=== PATIENT | female | born 2000 | race American Indian/Alaskan Native ===

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

== ENCOUNTER 2018-06-14 14:15 | Emergency (ER) | payer MEDICAID ==
[2018-06-14 14:21] VITALS: BP 110/63
--- NOTE | 2018-06-14 14:22 | Emergency Department Report ---
Chief Complaint: Back Pain/Injury Stated Complaint: 17 WEEKS PREGNANCT/BACK PAIN Time Seen by Provider: 06/14/18 14:19 - HPI History of Present Illness: This is a 18 y.o. female that presents with low back pain, dysuria, and urinary frequency for a few weeks. Patient is 17 weeks . LMP 02/16/19, A0. Followed by [facility] at [facility] in [place]. Denies vaginal bleeding, vaginal discharge, or abdominal pain. - Exam Vital Signs: Vital Signs 06/14/18 14:20 Temperature 97.6 F Pulse Rate 105 H Respiratory 16 Rate Blood Pressure 110/63 O2 Sat by Pulse 100 Oximetry MSE screening note: Focused history and physical exam performed. Due to findings the following was ordered: labs acc for further evaluation ED Disposition for MSE Condition: Stable
[2018-06-14 14:44] LABS: Bacteria,Urine 1+ /HPF (Negative); Bilirubin,Urine NEG (Negative); Blood,Urine NEG (Negative); Color,Urine Yellow (Yellow); Mucus,Urine 1+ /HPF; Protein,Urine <15 mg/dL mg/dL (Negative)
[2018-06-14 14:45] LABS: HCG Qualitative,Urine Positive (Negative); WBC,Urine > 182.0 /HPF (0.0-6.0)
[2018-06-14] MEDS ORDERED: ZOFRAN IV ONE (15:58)
[2018-06-14] MEDS ORDERED: NACL 0.9% 1000 ML 1,000 ML IV ONE (15:58)
[2018-06-14] MEDS ORDERED: ROCEPHIN/NS 1 GM/50 ML 1 GM/50 ML BAG IV ONE (15:58)
--- NOTE | 2018-06-14 15:59 | Emergency Department Report ---
ED Dysuria HPI - HPI Chief Complaint: Back Pain/Injury Stated Complaint: 17 WEEKS PREGNANCT/BACK PAIN Time Seen by Provider: 06/14/18 14:19 Duration: 2 Days Severity: Mild Symptoms: Dysuria: Yes, Frequency: Yes, Suprapubic Pain: No, Flank Pain: No, Fever: No, Hematuria: No, Abdominal Pain: No, Previous UTI's: No Other History: Patient is a 18-year-old female comes to the ER today complaining of back pain. Patient is 17 weeks . Her last menstrual cycle was 1 04/19/2017. She sees Dr. Marques. She last saw him 2 weeks ago and everything was okay including her urine. . Patient has no nausea vomiting, diarrhea, fever. Patient has no abdominal pain and no vaginal bleeding or discharge. ED Review of Systems ROS: Stated complaint: 17 WEEKS PREGNANCT/BACK PAIN Other details as noted in HPI Comment: All other systems reviewed and negative Constitutional: denies: chills, fever Eyes: denies: eye pain ENT: denies: throat pain Respiratory: denies: cough Cardiovascular: denies: palpitations Endocrine: denies: flushing Gastrointestinal: as per HPI. denies: nausea Genitourinary: as per HPI, dysuria Musculoskeletal: as per HPI, back pain Skin: denies: rash Neurological: denies: weakness Psychiatric: denies: as per HPI Hematological/Lymphatic: denies: as per HPI, easy bleeding ED Past Medical Hx - Past Medical History Previous Medical History?: No - Surgical History Past Surgical History?: No - Family History Family history: no significant - Social History Smoking Status: Never Smoker Substance Use Type: None - Medications Home Medications: Home Medications Medication Instructions Recorded Confirmed Last Taken Type Meclizine [Antivert] 25 mg PO TID PRN #20 tablet 04/10/17 Unknown Rx Nitrofurantoin Monohyd/M-Cryst 100 mg PO BID #14 capsule 06/14/18 Unknown Rx [Macrobid 100 mg Capsule] Dysuria Exam - Exam General: Vital signs noted. No distress. Alert and acting appropriately. Exam: Yes Moist Mucous Membranes, No CVA Tenderness, No Abdominal Tenderness, No Rigidity or Guarding Labs: Lab Results 06/14/18 Range/Units 14:29 Urine Color Yellow (Yellow) Urine Turbidity Cloudy (Clear) Urine pH 7.0 (5.0-7.0) Ur Specific [place] 1.029 (1.003-1.030) Urine Protein <15 mg/dl (Negative) mg/dL Urine Glucose (UA) Neg (Negative) mg/dL Urine Ketones Neg (Negative) mg/dL Urine Blood Neg (Negative) Urine Nitrite Neg (Negative) Urine Bilirubin Neg (Negative) Urine Urobilinogen 4.0 (<2.0) mg/dL Ur Leukocyte Esterase Lg (Negative) Urine WBC (Auto) > 182.0 H (0.0-6.0) /HPF Urine RBC (Auto) 5.0 (0.0-6.0) /HPF U Epithel Cells (Auto) 12.0 (0-13.0) /HPF Urine Bacteria (Auto) 1+ (Negative) /HPF Urine Mucus 1+ /HPF Urine HCG, Qual Positive A (Negative) ED Course Vital Signs 06/14/18 14:20 Temperature 97.6 F Pulse Rate 105 H Respiratory 16 Rate Blood Pressure 110/63 O2 Sat by Pulse 100 Oximetry ED Medical Decision Making - Lab Data Result diagrams: 06/14/18 16:13 06/14/18 16:13 - Medical Decision Making Labs 06/14/18 06/14/18 06/14/18 14:29 16:13 16:13 WBC 7.9 RBC 4.44 Hgb 13.9 Hct 40.1 MCV 91 MCH 31 MCHC 35 H RDW 13.2 Plt Count 169 Sodium 138 Potassium 4.3 Chloride 102.9 Carbon Dioxide 25 Anion Gap 14 BUN 10 Creatinine 0.5 L Estimated GFR > 60 BUN/Creatinine Ratio 20 Glucose 96 Calcium 9.4 Urine Color Yellow Urine Turbidity Cloudy Urine pH 7.0 Ur Specific [place] 1.029 Urine Protein <15 mg/dl Urine Glucose (UA) Neg Urine Ketones Neg Urine Blood Neg Urine Nitrite Neg Urine Bilirubin Neg Urine Urobilinogen 4.0 Ur Leukocyte Esterase Lg Urine WBC (Auto) > 182.0 H Urine RBC (Auto) 5.0 U Epithel Cells (Auto) 12.0 Urine Bacteria (Auto) 1+ Urine Mucus 1+ Urine HCG, Qual Positive A Vital Signs 06/14/18 14:20 Temperature 97.6 F Pulse Rate 105 H Respiratory 16 Rate Blood Pressure 110/63 O2 Sat by Pulse 100 Oximetry 1L NS IV rocephin ambulatory taking po no fever no CVA tenderness urine culture sent and pending dc home with obgyn follow up dc home on macrobid allergy to pcn so I dont want to send with keflex; although she tolerated rocephin in ER will have obgyn follow up with culture 1700 on dc pt vss. nad. no abd pain or vag d/c or bleeding. Critical care attestation.: If time is entered above; I have spent that time in minutes in the direct care of this critically ill patient, excluding procedure time. ED Disposition Clinical Impression: UTI (urinary tract infection), Disposition: DC-01 TO HOME OR SELFCARE Is pt being admited?: No Does the pt Need Aspirin: No Condition: Stable Instructions: Urinary Tract Infection in Women (ED) Additional Instructions: DIET TOLERATED MEDS ORDERED TODAY IN ER FOLLOW INSTRUCTIONS ON THE BOTTLE FOLLOW UP PCP WITHIN 48 HOURS TO ENSURE YOU ARE GETTING BETTER ACTIVITY TOLERATED TYLENOL FOR PAIN OR FEVER RETURN TO THE ER FOR WORSENING SYMPTOMS NOT RELIEVED BY YOUR MEDICATIONS. Referrals: BRAD FOY MD [Primary Care Provider] - 3-5 Days Time of Disposition: 17:00
[2018-06-14 16:36] LABS: Hematocrit 40.1 % (30.3-42.9); Hemoglobin 13.9 gm/dl (10.1-14.3); Mean Corpuscular HGB Conc 35 % (30-34); Mean Corpuscular Volume 91 fl (79-97); Platelet Count 169 K/mm3 (140-440); Red Blood Count 4.44 M/mm3 (3.65-5.03); Red Cell Distribution Width 13.2 % (13.2-15.2)
[2018-06-14 16:50] LABS: BUN/Creatinine Ratio 20; Blood Urea Nitrogen 10 mg/dL (7-17); Calcium 9.4 mg/dL (8.4-10.2); Hemolysis Index 8
== END 2018-06-14 18:04 | disposition home or self-care (01) ==
LOC: ED 14:15
DX: O23.42 Unspecified infection of urinary tract in pregnancy, second trimester (principal); Z88.1 Allergy status to other antibiotic agents; Z3A.17 17 weeks gestation of pregnancy
CPT/HCPCS: 36415; 80048; 81001; 81025; 85027; 96365; 96375; 99283; J0696; J2405; J7030